=== PATIENT | female | born 1945 | race Caucasian/White ===

== ENCOUNTER 2020-03-31 15:30 | Outpatient (CLI) | payer MEDICARE, SELFPAY ==
--- NOTE | 2020-03-31 15:38 | XRR_ITS ---
PROCEDURE INFORMATION: Exam: XR Left Shoulder Exam date and time: 03/31/2020 3:43 PM Age: 74 years old Clinical indication: Injury or trauma; Fall; Initial encounter; Blunt trauma (contusions or hematomas; Shoulder; Left; Injury date: 1 week ago; Additional info: Trauma to shoulder TECHNIQUE: Imaging protocol: XR Left shoulder. Views: 2 or more views. COMPARISON: No relevant prior studies available. FINDINGS: Bones/joints: Osteopenia. Mildly displaced fracture of the distal clavicle with superior displacement of the distal fragment by approximately 8 mm. No dislocation. Severe glenohumeral osteoarthrosis with remodeling of the humeral head and glenoid. Multiple intra-articular bodies. Soft tissues: Mild soft tissue swelling. XR/XR shoulder LT min 2V* [id number] IMPRESSION: 1. Distal clavicle fracture, as described above. 2. Additional findings, as above.
== END 2020-03-31 15:31 | disposition home or self-care (01) ==
LOC: RADWPI 15:35
PROVIDERS: Family Provider Family Medicine; PCP Family Medicine; Visit Provider Family Medicine
DX: S49.92XA Unspecified injury of left shoulder and upper arm, initial encounter (principal); S42.002A Fracture of unspecified part of left clavicle, initial encounter for closed fracture; X58.XXXA Exposure to other specified factors, initial encounter; I10 Essential (primary) hypertension; E53.8 Deficiency of other specified B group vitamins
CPT/HCPCS: 73030; 80048; 82607; 85025

== ENCOUNTER → 2020-08-12 13:32 | Outpatient (BNVA) | payer MEDICARE, SELFPAY | PROVIDERS: Family Provider Family Medicine; PCP Family Medicine; Visit Provider Family Medicine | DX: E53.8 Deficiency of other specified B group vitamins (principal) | CPT/HCPCS: 80048; 82607 ==

== ENCOUNTER → 2021-04-20 14:51 | Outpatient (BNVA) | payer MEDICARE, SELFPAY | PROVIDERS: Family Provider Family Medicine; PCP Family Medicine; Visit Provider Family Medicine | DX: E53.8 Deficiency of other specified B group vitamins (principal); I10 Essential (primary) hypertension; M19.011 Primary osteoarthritis, right shoulder; M19.012 Primary osteoarthritis, left shoulder; J41.0 Simple chronic bronchitis; F41.1 Generalized anxiety disorder | CPT/HCPCS: 80053; 82607; 85025 ==

== ENCOUNTER → 2021-12-22 11:29 | Outpatient (BNVA) | payer MEDICARE, SELFPAY | PROVIDERS: Family Provider Family Medicine; PCP Family Medicine; Visit Provider Family Medicine | DX: E53.8 Deficiency of other specified B group vitamins (principal); I10 Essential (primary) hypertension; J41.0 Simple chronic bronchitis; M19.011 Primary osteoarthritis, right shoulder; M19.012 Primary osteoarthritis, left shoulder; F41.1 Generalized anxiety disorder | CPT/HCPCS: 80053; 82607; 85025 ==

== ENCOUNTER → 2022-12-13 12:58 | Outpatient (BNVA) | payer MEDICARE, SELFPAY | PROVIDERS: Family Provider Family Medicine; PCP Family Medicine; Visit Provider Family Medicine | DX: I10 Essential (primary) hypertension (principal); Z00.00 Encounter for general adult medical examination without abnormal findings; J41.0 Simple chronic bronchitis; F41.1 Generalized anxiety disorder; M19.011 Primary osteoarthritis, right shoulder; M19.012 Primary osteoarthritis, left shoulder | CPT/HCPCS: 80053; 85025 ==

== ENCOUNTER → 2023-08-22 10:35 | Outpatient (BNVA) | payer MEDICARE, SELFPAY | PROVIDERS: Family Provider Family Medicine; PCP Family Medicine; Visit Provider Family Medicine | DX: I10 Essential (primary) hypertension (principal); E53.8 Deficiency of other specified B group vitamins; J42 Unspecified chronic bronchitis; J41.0 Simple chronic bronchitis | CPT/HCPCS: 80053; 85025 ==

== ENCOUNTER 2024-05-08 10:06 | Outpatient (CLI) | payer MEDICARE, SELFPAY ==
--- NOTE | 2024-05-08 10:13 | XR_ITS ---
WS: [id number] Exam: XR chest 2V* [id number] Date/Time of Exam: 05/08/2024 10:37 AM Reason For Exam: 3 week cough No priors. Atelectasis in the LEFT lower lobe. No consolidating infiltrates or pneumothorax. Heart size is saige l. The mediastinum is normal in contour. Advanced degenerative changes of both shoulders. 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 Old high-grade compression fracture of L1. Degener ative change and dextroscoliosis of the thoracolumbar junction. XR/XR chest 2V* [id number] IMPRESSION: 1. LEFT lower lobe atelectasis. 2. No consolidated infiltrates.
== END 2024-05-08 10:07 | disposition home or self-care (01) ==
LOC: RAD 10:10
PROVIDERS: Family Provider Family Medicine; PCP Family Medicine; Visit Provider Family Medicine
DX: J18.9 Pneumonia, unspecified organism (principal); Z86.39 Personal history of other endocrine, nutritional and metabolic disease; E53.8 Deficiency of other specified B group vitamins; J41.0 Simple chronic bronchitis; I10 Essential (primary) hypertension; J98.11 Atelectasis; M19.019 Primary osteoarthritis, unspecified shoulder; M67.20 Synovial hypertrophy, not elsewhere classified, unspecified site; M41.35 Thoracogenic scoliosis, thoracolumbar region
CPT/HCPCS: 71046; 80053; 82607; 85025